=== PATIENT | male | born 1995 | race Caucasian/White ===

== ENCOUNTER 2016-10-15 20:44 | Emergency (ER) | payer OTHER ==
[~2016-10-15] VITALS: Ht 162.6 cm; Wt 82.3 kg
[~2016-10-15 20:44] MED LIST: ADVIAR
[2016-10-15 21:31] VITALS: Ht 162.6 cm; Wt 82.3 kg
[2016-10-15] MEDS ORDERED: ACETAMINOPHEN 500 MG TAB PO STA (23:20)
[2016-10-15] MEDS ORDERED: IBUPROFEN 600 MG TAB PO ONE (23:30)
--- NOTE | 2016-10-15 23:49 | RADRPT ---
PROCEDURE: CHEST - 1 VIEW CLINICAL INDICATION: 21-year-old male with cough. TECHNIQUE: A single frontal AP semi-erect view of the chest was performed portably. The images we re reviewed on a PACS workstation. COMPARISON: Chest x-ray November 14, 2014. FINDINGS: The cardiomediastinal silhouette has a normal appearance. There is no evidence for an infiltrate. T he pulmonary vascularity is within normal limits. There is no evidence for pneumothorax or pneumomed iastinum. The osseous structures are intact. IMPRESSION: No evidence for active cardiopulmonary disease. .Paul Chang MD, Date Time Electronically viewed and signed by .Paul Chang MD, on 10/15/2016 23:49 .M/
[2016-10-15] MEDS ORDERED: IBUP-1542 PO (23:56)
[2016-10-15] MEDS ORDERED: BENZ100C70 PO (23:56)
[2016-10-15] MEDS ORDERED: ACET-2047 PO (23:56)
--- NOTE | 2016-10-16 00:03 | ERD ---
ER Documentation Chief Complaint Date/Time DATE: 10/16/16 TIME: 00:00 Chief Complaint cough/body aches x 3 days HPI This is a 21-year-old male presenting to the emergency department with fever, cough, body aches for the past 2-3 days. Patient states that he has chest pain when he coughs a lot. Patient denies any shortness of breath. Denies any taking medications today. Denies any vomiting, diarrhea. ROS All systems reviewed and are negative except as per history of present illness. Medications Home Meds Active Scripts Benzonatate* (Tessalon Perle*) 100 Mg Capsule, 100 MG PO Q8H Y for COUGH, #20 CAP Prov:SHAY CARDOZA PA-C 10/15/16 Acetaminophen* (Acetaminophen*) 650 Mg Tablet, 650 MG PO Q6H Y for PAIN AND OR ELEVATED TEMP, #30 TAB Prov:SHAY CARDOZA-C 10/15/16 Ibuprofen* (Motrin*) 600 Mg Tab, 600 MG PO Q6H Y for PAIN AND OR ELEVATED TEMP, #30 TAB Prov:SHAY CARDOZA-C 10/15/16 Reported Medications [Adviar] No Conflict Check 06/26/11 Allergies Allergies: Coded Allergies: Penicillins (Verified Allergy, Unknown, RASH, 10/15/16) PMhx/Soc Medical and Surgical Hx: pt denies Medical Hx, pt denies Surgical Hx History of Surgery: No Anesthesia Reaction: No Hx Neurological Disorder: No Hx Respiratory Disorders: No Hx Cardiac Disorders: No Hx Psychiatric Problems: No Hx Miscellaneous Medical Probl: No Hx Alcohol Use: No Hx Substance Use: No Hx Tobacco Use: No Smoking Status: Never smoker Physical Exam Vitals Vital Signs Date Time Temp Pulse Resp B/P Pulse Ox O2 Delivery O2 Flow Rate FiO2 10/15/16 21:31 101.3 105 20 146/82 98 Physical Exam GENERAL: well-developed/well-nourished, in no apparent distress, non-toxic appearing HEAD: NC/AT, no swelling noted in frontal or maxillary areas EARS: bilateral tympanic membrane is intact without erythema or effusion NARES: Congested THROAT: oropharynx non-erythematous without exudates, no tonsil enlargement, post nasal drip EYES: Conjunctiva normal NECK: Supple, no lymphadenopathy PULM: CTA bilaterally, no rales, rhonchi, or wheezing heard CV: Normal S1S2, RRR, good capillary refill GI: Soft, non-distended, normal bowel sounds, non-tender BACK: No midline tenderness, no masses EXT No clubbing, cyanosis, or edema NEURO: Alert and Orientated SKIN: Intact, normal turgor PSYCH: Normal mood and mentation Results 24 hrs Current Medications Medications (Trade) Dose Ordered Sig/Blade Route PRN Reason Start Time Stop Time Status Last Admin Dose Admin Ibuprofen (Motrin) 600 mg ONCE ONCE PO 10/15/16 23:30 10/15/16 23:31 DC Acetaminophen (Tylenol Tab) 1,000 mg ONCE STAT PO 10/15/16 23:20 10/15/16 23:21 DC Procedures/MDM This is a 21-year-old male presenting to the emergency department with fever, cough and body aches for the past 2-3 days. 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 I will low suspicion for pneumonia, strep pharyngitis, otitis media. Patient received Tylenol and ibuprofen in the ED and trend downward. Patient has stable vital signs now. Chest x-ray was unremarkable for infiltrates, pneumothorax or pleural effusion. Patient stable for discharge. Prescription for Tessalon Perles, Tylenol and Motrin were provided. Discussed return the ER for any worsening symptoms. He understands and agrees with plan Departure Diagnosis: Primary Impression: URI (upper respiratory infection) Additional Impression: Fever Condition: Stable Patient Instructions: Fever Control (Adult), Uri, Viral, No Abx (Adult) Additional Instructions: FOLLOW UP WITH YOUR PRIMARY CARE PHYSICIAN TOMORROW.Return to this facility if you are not improving as expected. Take all medicines as directed. Return to this facility if you are not improving as expected. SHAY CARDOZA PA-C Oct 16, 2016 00:03
[2016-10-16 00:25] VITALS: BP 140/80; PULSE 85; RESP 20; TEMP 99.9
== END 2016-10-16 00:25 | disposition home or self-care (01) ==
LOC: FTE 20:44
DX: J06.9 Acute upper respiratory infection, unspecified (principal); R50.9 Fever, unspecified
CPT/HCPCS: 71010; Z7502; Z7610

== ENCOUNTER 2016-12-17 08:06 | Emergency (ER) | payer OTHER ==
[~2016-12-17] VITALS: Ht 157.5 cm; Wt 82.0 kg
[~2016-12-17 08:06] MED LIST changes: +ACET-2047 PO; +BENZ100C70 PO; +IBUP-1542 PO
[2016-12-17 08:18] VITALS: Ht 157.5 cm; Wt 82.0 kg
--- NOTE | 2016-12-17 08:55 | ERD ---
ER Documentation Chief Complaint Date/Time DATE: 12/17/16 TIME: 08:52 Chief Complaint right knee pain HPI 21-year-old male complains of right anterior lateral knee pain that started yesterday when he was exercising at the gym. Patient states that he was at about a hip stance and was pulling down on some weights with his forearms and he states that there is pain now with right knee extension. There is no pain noted at rest or with flexion, is no weakness associated. ROS All systems reviewed and are negative except as per history of present illness. Medications Home Meds Active Scripts Naproxen* (Naprosyn*) 500 Mg Tablet, 500 MG PO BID Y for PAIN AND/OR INFLAMMATION, #30 TAB Prov:JEWEL HOLLY PA-C 12/17/16 Benzonatate* (Tessalon Perle*) 100 Mg Capsule, 100 MG PO Q8H Y for COUGH, #20 CAP Prov:SHAY CARDOZA PA-C 10/15/16 Acetaminophen* (Acetaminophen*) 650 Mg Tablet, 650 MG PO Q6H Y for PAIN AND OR ELEVATED TEMP, #30 TAB Prov:SHAY CARDOZA PA-C 10/15/16 Ibuprofen* (Motrin*) 600 Mg Tab, 600 MG PO Q6H Y for PAIN AND OR ELEVATED TEMP, #30 TAB Prov:SHAY CARDOZA PA-C 10/15/16 Reported Medications [Adviar] No Conflict Check 06/26/11 Allergies Allergies: Coded Allergies: Penicillins (Verified Allergy, Unknown, RASH, 12/17/16) PMhx/Soc History of Surgery: No Anesthesia Reaction: No Hx Neurological Disorder: No Hx Respiratory Disorders: No Hx Cardiac Disorders: No Hx Psychiatric Problems: No Hx Miscellaneous Medical Probl: No Hx Alcohol Use: No Hx Substance Use: No Hx Tobacco Use: No Smoking Status: Never smoker Physical Exam Vitals Vital Signs Date Time Temp Pulse Resp B/P Pulse Ox O2 Delivery O2 Flow Rate FiO2 12/17/16 08:18 98.1 54 18 133/70 99 Physical Exam General: Well-developed, well-nourished. The patient appears in no acute distress. HEENT: Head is normocephalic, atraumatic. No scleral icterus. Neck: Supple. Nontender. Lungs: Clear to auscultation. Normal air movement. Heart: Regular rate and rhythm. S1 and S2 are normal. No murmurs, gallops, or rubs. Lower Extremity - bilateral: Skin: No laceration Compartments: Soft Motor: Full active range of motion hip/knee/ankle/foot Sensation: Intact to light touch FDWS/MF/LF/P surfaces. Bones: Nontender pelvis/knee/proximal tibia/ malleoli/foot Joints: No effusion or laxity Pulses/Perfusion: 2+ DP, Capillary refill < 2 seconds Extremities: No clubbing or cyanosis. Moving extremities x 4. No weakness. Neurologic: Alert and oriented 3. No focal deficits. Normal speech and gait. Skin: Normal turgor. No rash or lesions. Results 24 hrs Current Medications Medications (Trade) Dose Ordered Sig/Blade Route PRN Reason Start Time Stop Time Status Last Admin Dose Admin Ibuprofen (Motrin) 600 mg ONCE ONCE PO 12/17/16 09:00 12/17/16 09:01 DC 12/17/16 09:22 PROCEDURE: Right knee x-ray CLINICAL INDICATION: Pain after working out TECHNIQUE: AP, lateral and oblique views of the knee were obtained. COMPARISON: None FINDINGS: There is normal mineralization. No acute fracture or dislocation is seen. There is no joint effusion. Small medial osteophytes are seen. The joint spaces are relatively maintained. There is no significant soft tissue swelling. IMPRESSION: Small medial osteophytes are seen. Otherwise, no significant abnormalities are identified. RPTAT:AAJJ Physician Rodney Date Time Electronically viewed and signed by Maksim Mata Physician on 12/17/2016 09: 50 Procedures/MDM ED COURSE: Patient was offered ibuprofen 600 mg by mouth. Medical decision makin-year-old male comes to the ER with left anterior knee pain, consistent with a sprain. No fracture, dislocation, subluxation, signs of infection, osteomyelitis, septic arthritis. Departure Diagnosis: Primary Impression: Knee pain Condition: JEWEL Dubois PA-C Dec 17, 2016 08:55
[2016-12-17] MEDS ORDERED: IBUPROFEN 600 MG TAB PO ONE (09:00)
--- NOTE | 2016-12-17 09:51 | RADRPT ---
PROCEDURE: Right knee x-ray CLINICAL INDICATION: Pain after working out TECHNIQUE: AP, lateral and oblique views of the knee were obtained. COMPARISON: None FINDINGS: There is normal mineralization. No acute fracture or dislocation is seen. There is no joint effusion. Small medial osteophytes are seen. The joint spaces are relatively maintained. There is no significant soft tissue swelling. IMPRESSION: Small medial osteophytes are seen. Otherwise, no significant abnormalities are identified. RPTAT:AAJJ Physician Rodney Date Time Electronically viewed and signed by Maksim Mata Physician on 12/17/2016 09:50 /
[2016-12-17] MEDS ORDERED: NAPR-260 PO (09:55)
[2016-12-17 10:30] VITALS: TEMP 98.2
== END 2016-12-17 10:31 | disposition home or self-care (01) ==
LOC: FTE 08:06
DX: M25.561 Pain in right knee (principal); J45.909 Unspecified asthma, uncomplicated
CPT/HCPCS: 73562; Z7610